=== PATIENT | female | born 1950 | race Caucasian/White ===

== ENCOUNTER 2023-05-12 17:44 | Outpatient (CLI) | payer MEDICARE, SELFPAY ==
--- NOTE | 2023-05-12 17:54 | XRR_ITS ---
PROCEDURE INFORMATION: Exam: XR Left Wrist Exam date and time: 05/12/2023 5:57 PM Age: 73 years old Clinical indication: Pain; Wrist; Left; Additional info: Left wrist injury TECHNIQUE: Imaging protocol: Radiologic exam of the left wrist. Views: 3 or more views. COMPARISON: CR XR hand LT min 3V* [id number] 05/17/2016 9:35 PM FINDINGS: Bones/joints: No acute fracture or dislocation. Severe degenerative joint space narrowing, osteophytosis, subchondral sclerosis and cystic change at the 1st CMC joint with likely intra-articular bodies, similar to May 2016. Chondrocalcinosis. Soft tissues: Soft tissue swelling about the wrist. XR/XR wrist LT min 3V* [id number] IMPRESSION: 1. Left wrist soft tissue swelling without acute fracture or dislocation. 2. Severe 1st CMC joint osteoarthritis. 3. Chondrocalcinosis is nonspecific but commonly seen in the setting of calcium pyrophosphate deposition disease.
== END 2023-05-12 17:45 | disposition home or self-care (01) ==
PROVIDERS: PCP Family Medicine; Visit Provider Registered Nurse Neonatal Intensive Care
DX: M25.532 Pain in left wrist (principal); M18.9 Osteoarthritis of first carpometacarpal joint, unspecified; M11.232 Other chondrocalcinosis, left wrist; M79.89 Other specified soft tissue disorders
CPT/HCPCS: 73110

== ENCOUNTER 2023-07-27 11:24 | Outpatient (CLI) | payer MEDICARE, SELFPAY ==
--- NOTE | 2023-07-27 11:32 | XRR_ITS ---
PROCEDURE INFORMATION: Exam: XR Left Knee Exam date and time: 07/27/2023 11:35 AM Age: 73 years old Clinical indication: Knee; Left; Patient HX: Swollen, hobble, and pain for a couple of months; Additional info: Medial left knee pain TECHNIQUE: Imaging protocol: Radiologic exam of the left knee. Views: 3 views. COMPARISON: No relevant prior studies available. FINDINGS: Bones/joints: Tricompartmental DJD, preferentially involving the medial compartment. Small joint effusion. Osteopenia. No fracture or bony destructive lesion. Soft tissues: Normal. XR/XR knee LT 3V* [id number] IMPRESSION: No acute findings.
== END 2023-07-27 11:25 | disposition home or self-care (01) ==
LOC: RAD 11:27
PROVIDERS: PCP Family Medicine; Visit Provider Family Medicine
DX: M25.562 Pain in left knee (principal); I10 Essential (primary) hypertension
CPT/HCPCS: 73562; 80053; 80061; 84443; 85025

== ENCOUNTER → 2023-08-28 10:26 | Outpatient (BNVA) | payer MEDICARE, SELFPAY | PROVIDERS: PCP Family Medicine; Referring Provider Family Medicine; Visit Provider Specialist | DX: M25.562 Pain in left knee (principal) | CPT/HCPCS: 73560; 73565; 99204 ==

== ENCOUNTER → 2025-04-28 15:10 | Outpatient (BNVA) | payer MEDICARE, SELFPAY | PROVIDERS: PCP Family Medicine; Visit Provider Family Medicine | DX: I10 Essential (primary) hypertension (principal) | CPT/HCPCS: 80053; 80061; 84443; 85025 ==

== ENCOUNTER → 2025-06-06 15:10 | Outpatient (BNVA) | payer MEDICARE, SELFPAY | PROVIDERS: PCP Family Medicine; Visit Provider Family Medicine | DX: I10 Essential (primary) hypertension (principal); Z13.6 Encounter for screening for cardiovascular disorders; D61.818 Other pancytopenia | CPT/HCPCS: 80048; 85025 ==